=== PATIENT | female | born 1990 | race Caucasian/White ===

== ENCOUNTER 2022-07-08 16:44 | Emergency (ER) | payer OTHER ==
[~2022-07-08] VITALS: Ht 167.6 cm; Wt 84.1 kg
[2022-07-08 17:11] VITALS: BP 134/70
[2022-07-08] MEDS ORDERED: CORTSOL AD (17:18)
[2022-07-08] MEDS ORDERED: IBUP-1492 PO (17:18)
[2022-07-08] MEDS ORDERED: AMOX500C2 PO (17:18)
== END 2022-07-08 17:55 | disposition home or self-care (01) ==
LOC: EMS 16:44
DX: T16.1XXA Foreign body in right ear, initial encounter (principal); H60.11 Cellulitis of right external ear; H60.91 Unspecified otitis externa, right ear; Z90.49 Acquired absence of other specified parts of digestive tract; W45.8XXA Other foreign body or object entering through skin, initial encounter; Y93.89 Activity, other specified; Y92.89 Other specified places as the place of occurrence of the external cause; Y99.8 Other external cause status
CPT/HCPCS: 99283